=== PATIENT | male | born 1955 | race African-American/Black ===

== ENCOUNTER 2018-08-05 09:33 | Emergency (ER) | payer MEDICAID ==
[2018-08-05] MEDS ORDERED: IPRATROPIUM/ALBUTEROL 0.5-2.5 MG/3 ML AMPUL NEB ONE (10:00)
--- NOTE | 2018-08-05 10:01 | ER Document Report ---
ED General - General Chief Complaint: Cough Stated Complaint: COUGH/WEAKNESS/SHORT OF BREATH Primary Care Provider: JAMES HECK MD [Primary Care Provider] - Follow up as needed TRAVEL OUTSIDE OF THE [place] IN LAST 30 DAYS: No - HPI Notes: Patient is a 62-year-old male with a history of tobacco abuse who presents the emergency department complaining of dry nonproductive cough, nasal congestion/discharge, shortness of breath, and occasional chest tightness (none at this time) that began yesterday. Patient states that he does become short of breath with ambulation as well. He is otherwise able to eat and drink without difficulty. He is urinating normally and having normal bowel movements. P atient states that he does not take any medicines daily and has no other significant cardiopulmonary medical history. Denies drug allergies. Denies any headache, fever, neck pain, changes in vision/speech/mentation/hearing, sore throat, chest pain, palpitations, syncope, wheeze, abdominal pain, na usea/vomiting/diarrhea, urinary retention, dysuria, hematuria, or rash. Denies any prolonged immobilization, distance travel, recent surgery/trauma, personal cancer history, hormone use, or previous DVT/PE. - Related Data Allergies/Adverse Reactions: No Known Allergies Allergy (Verified 08/05/18 09:40) Past Medical History - Social History Smoking Status: Current Every Day Smoker Family History: Reviewed & Not Pertinent Review of Systems - Review of Systems -: Yes All other systems reviewed and negative Physical Exam - Vital signs Vitals: Temp Pulse Resp BP Pulse Ox 99.1 F 92 16 136/88 H 93 08/05/18 09:46 08/05/18 09:46 08/05/18 09:46 08/05/18 09:46 08/05/18 09:46 - Notes Notes: PHYSICAL EXAMINATION: GENERAL: Well-appearing, well-nourished and in no acute distress. A&Ox4. Answers questions appropriately. HEAD: Atraumatic, normocephalic. EYES: Pupils equal round and reactive to light, extraocular movements intact, sclera anicteric, conjunctiva are normal. ENT: Nares patent and without discharge. oropharynx clear without exudates. No tonsilar hypertrophy or erythema. Moist mucous membranes. NECK: Normal range of motion, supple without lymphadenopathy LUNGS: Diminished sounds b/l. No retractions. HEART: Regular rate and rhythm without murmurs, rubs, gallops. ABDOMEN: Soft, nontender, nondistended abdomen. No guarding, no rebound. No masses appreciated. Normal bowel sounds present. No CVA tenderness bilaterally. Musculoskeletal: FROM to passive/active. Strength 5+/5. Bibi neg. No asymmetry to LE's. Extremities: No cyanosis, clubbing, or edema b/l. Peripheral pulses 2+. Capillary refill less than 3 seconds. NEUROLOGICAL: Normal speech, normal gait. PSYCH: Normal mood, normal affect. SKIN: Warm, Dry, normal turgor, no rashes or lesions noted. Course - Re-evaluation Re-evalutation: 08/05/18 15:51 Patient is a well-hydrated 62-year-old male who presents to the ED with shortness of breath and acute UTI. pt did have a fever 101.9 develop during his stay. Patient is nontoxic-appearing and is tolerating p.o. without any difficulties. CBC, CMP, EKG/cardiac enzymes, VBG, influenza, chest x-ray are all unremarkable for any acute pathology. D-dimer was elevated and CTA chest negative for PE but did show emphysematic change. Pt was ambulated without O2 and he dropped/maintained 87-89% on RA. I thoroughly reviewed with the patient that he is hypoxic with a fever with no definitive source aside from a cough/URI symptoms. Pt and are adamant to go home. Risks/benefits reviewed including the possibility of due to incomplete work up. They verbalized understanding and state that they will return if things worsen. They declined 2nd trop test. Pt did receive magnesium, breathing treatments, solumedrol, and toradol. Patient is aware that his condition can change from initial presentation and he needs to monitor symptoms closely and seek medical attention for any acute changes. Rx for inhaler and steroids (dispense also provided for inhaler). Recommend conservative measures for symptoms. Recheck with your PCM in 1-2 days. Return to the ED with any worsening/concerning symptoms otherwise as reviewed in discharge. Patient is in agreement. Reviewed case with Dr. Reid who is in agreement with dispo/plan. - Vital Signs Vital signs: Temp Pulse Resp BP Pulse Ox 101.9 F H 92 24 H 143/89 H 95 08/05/18 14:49 08/05/18 09:46 08/05/18 10:01 08/05/18 10:00 08/05/18 10:01 - Laboratory Result Diagrams: 08/05/18 10:00 08/05/18 10:00 Laboratory results interpreted by me: 08/05/18 08/05/18 08/05/18 10:00 10:00 10:00 RDW 14.3 H D-Dimer 0.79 H ALT 17 L Discharge - Discharge Clinical Impression: Acute URI, SOB (shortness of breath) Fever Qualifiers: Fever type: unspecified Qualified Code(s): R50.9 - Fever, unspecified Condition: Stable Disposition: AGAINST MEDICAL ADVICE Additional Instructions: As reviewed, you are electing to sign out AGAINST MEDICAL ADVICE. You assume the risk of worsening symptoms, and the possibility of . Do not hesitate to return for any worsening symptoms. Maintain adequate fluid intake Take meds as directed tylenol/ibuprofen as needed for fever alternating every 3 hours over the counter cold medication as needed for symptoms Humidified air may help Wash your hands regularly Wear a mask when coughing F/u: with your PCM in 1-2 days for a recheck Return to the ED with any fever, worsening pain, chest pain, palpitations, syncope, worsening PINZON, neck pain/stiffness, shortness of breath, wheezing, drooling, trouble swallowing/breathing, abdominal pain, n/v/d, rash, or worsening/concerning symptoms otherwise. Prescriptions: Albuterol Sulfate [Proair HFA Inhalation Aerosol 8.5 gm MDI] 2 puff IH Q4H PRN #1 mdi PRN Reason: Prednisone [Deltasone 20 mg Tablet] 3 tab PO DAILY 4 Days tablet Forms: Elevated Blood Pressure Referrals: JAMES HECK MD [Primary Care Provider] - Follow up tomorrow
[2018-08-05 10:21] LABS: ABSOLUTE BASOPHILS # (AUTO) 0.1 10^3/uL (0.0-0.2); ABSOLUTE EOSINOPHILS # (AUTO) 0.1 10^3/uL (0.0-0.6); ABSOLUTE MONOCYTES (AUTO) 0.7 10^3/uL (0.1-1.4); ABSOLUTE NEUT (AUTO) 4.8 10^3/uL (1.7-8.2); BASOPHILS % (AUTO) 1.1 % (0-2); EOSINOPHILS % (AUTO) 1.1 % (0-6); HEMATOCRIT 41.1 % (37.9-51.0); HEMOGLOBIN 13.9 g/dL (13.5-17.0); LYMPHOCYTES % (AUTO) 15.2 % (13-45); MEAN CORPUSCULAR HEMOGLOBIN 28.1 pg (27.0-33.4); MEAN CORPUSCULAR HGB CONC 33.8 g/dL (32.0-36.0); MEAN CORPUSCULAR VOLUME 83 fl (80-97); MONOCYTES % (AUTO) 10.8 % (3-13); PLATELET COUNT 326 10^3/uL (150-450); RED BLOOD COUNT 4.94 10^6/uL (4.35-5.55); RED CELL DISTRIBUTION WIDTH 14.3 % (11.5-14.0); SEGMENTED NEUTROPHILS % (AUTO) 71.8 % (42-78); TOTAL CELLS COUNTED % (AUTO) 100 %; VENOUS BLOOD BASE EXCESS 0.8 mmol/L; VENOUS BLOOD HCO3 26.2 mmol/L (20-32); VENOUS BLOOD PCO2 44.7 mmHg (35-63); VENOUS BLOOD PH 7.39 (7.30-7.42); WHITE BLOOD COUNT 6.7 10^3/uL (4.0-10.5)
--- NOTE | 2018-08-05 10:26 | RADIOLOGY REPORT (SQ) ---
EXAM DESCRIPTION: CHEST SINGLE VIEW COMPLETED DATE/TIME: 08/05/2018 10:13 am REASON FOR STUDY: sob, cough COMPARISON: None. EXAM PARAMETERS: NUMBER OF VIEWS: One view. TECHNIQUE: Single frontal radiographic view of the chest acquired. RADIATION DOSE: NA LIMITATIONS: None. FINDINGS: LUNGS AND PLEURA: Minimal linear biapical opacities, likely scarring. No additional focal consolidation. No pleural effusion or pneumothorax. MEDIASTINUM AND HILAR STRUCTURES: No masses. Contour normal. HEART AND VASCULAR STRUCTURES: Heart normal in size. Normal vasculature. BONES: No acute bony abnormality. HARDWARE: None in the chest. OTHER: No other significant finding. IMPRESSION: No evidence of acute cardiopulmonary process. TECHNICAL DOCUMENTATION: JOB ID: [id number] [employer]- All Rights Reserved Reading location - IP/workstation name: [email or web address]
[2018-08-05 10:38] LABS: ALANINE AMINOTRANSFERASE 17 U/L (21-72); ALBUMIN 4.6 g/dL (3.5-5.0); ALKALINE PHOSPHATASE 84 U/L (38-126); ANION GAP 11 (5-19); ASPARTATE AMINO TRANSFERASE 34 U/L (17-59); BILIRUBIN,DIRECT 0.3 mg/dL (0.0-0.4); BILIRUBIN,TOTAL 0.7 mg/dL (0.2-1.3); BLOOD UREA NITROGEN 11 mg/dL (7-20); CALCIUM 9.5 mg/dL (8.4-10.2); CARBON DIOXIDE 24 mmol/L (22-30); CHLORIDE 102 mmol/L (98-107); GLUCOSE 104 mg/dL (75-110); POTASSIUM 4.9 mmol/L (3.6-5.0); SODIUM 137.4 mmol/L (137-145); TOTAL PROTEIN 8.1 g/dL (6.3-8.2)
[2018-08-05 10:49] LABS: NT PRO BNP 164 pg/mL (5-900)
[2018-08-05 10:53] LABS: TROPONIN I < 0.012 ng/mL
[2018-08-05 11:25] LABS: A TYPE INFLUENZA AG NEGATIVE (NEGATIVE)
[2018-08-05 11:26] LABS: B INFLUENZA AG NEGATIVE (NEGATIVE)
--- NOTE | 2018-08-05 14:06 | RADIOLOGY REPORT (SQ) ---
EXAM DESCRIPTION: CTA CHEST COMPLETED DATE/TIME: 08/05/2018 12:59 pm REASON FOR STUDY: sob COMPARISON: None. TECHNIQUE: CT scan of the chest performed using helical scanning technique with dynamic intravenous contrast injection. Images reviewed with lung, soft tissue and bone windows. Reconstructed coronal and sagittal MPR images reviewed. Additional 3 dimensional post-processing performed to develop Maximal Intensity Projection images (NE P). All images stored on PACS. All CT scanners at this facility use dose modulation, iterative reconstruction, and/or weight based d osing when appropriate to reduce radiation dose to as low as reasonably achievable (ALARA). [facility]: Dose Right [facility]: CareDose [facility]: Dose Right [facility]: Teradose 4D [facility]: [email or web address] CONTRAST TYPE AND DOSE: contrast/concentration: Isovue 350.00 mg/ml; Total Contrast Delivered: 62.0 ml; Total Saline Delivered: 103.0 ml 08/05/2018 Contrast bolus adequate for pulmonary arteries and aorta. RENAL FUNCTION: BUN 11, creatinine 1.04 RADIATION DOSE: CT Rad equipment meets quality standard of care and radiation dose reduction techniq ues were employed. CTDIvol: 15.5 - 16.5 mGy. DLP: 610 mGy-cm. . LIMITATIONS: None. FINDINGS: LUNGS AND PLEURA: Upper lobe predominant centrilobular and panacinar emphysema, right grea ter than left. No dense consolidation. No significant pleural effusion. No pneumothorax. Bilatera l calcified pleural plaques. No discrete parenchymal masses. AORTA AND GREAT VESSELS: No aneurysm. Contrast bolus not optimized for the aorta. HEART: No pericardial effusion. Scattered coronary atherosclerosis. PULMONARY ARTERIES: No evidence of pulmonary embolus. Right to left ventricular ratio is normal. HILAR AND MEDIASTINAL STRUCTURES: No mediastinal, hilar or axillary adenopathy. HARDWARE: None in the chest. UPPER ABDOMEN: No significant findings. Limited exam. THYROID AND OTHER SOFT TISSUES: No masses. No adenopathy. BONES: No acute bony abnormality. No suspicious osseous lesions. Partial fusion of the upper thorac ic vertebral bodies. 3D MIPS: Confirm above findings. OTHER: No other significant finding. IMPRESSION: 1. No evidence of pulmonary embolus or other acute intrathoracic process. 2. Emphysematous change. 3. Bilateral calcified pleural plaques which can be seen with prior asbestos exposure. COMMENT: Quality ID # [id number]: Final reports with documentation of one or more dose reduction techniques (e.g., Automated exposure control, adjustment of the mA and/or kV according to patient size, use of iterative reconstruction technique) TECHNICAL DOCUMENTATION: JOB ID: [id number] [employer]- All Rights Reserved Reading location - IP/workstation name: [email or web address]
[2018-08-05] MEDS ORDERED: MAGNESIUM SULFATE/D5W 1 GM/100 ML RTUPB IV ONE ×2 (14:08→14:09)
[2018-08-05] MEDS ORDERED: ALBUTEROL SULFATE 0.083% NEB 2.5 MG/3 ML AMPUL NEB ONE (14:09)
[2018-08-05] MEDS ORDERED: METHYLPREDNISOLONE INJ 125 MG/2 ML SDV IV ONE (14:09)
[2018-08-05] MEDS ORDERED: KETOROLAC TROMETHAMINE INJ/PF 30 MG/1 ML SDV IV ONE (14:47)
[2018-08-05 16:00] VITALS: BP 106/57
[2018-08-05] MEDS ORDERED: ALBUTEROL SULFATE HFA (90 MCG/PUFF) 8 GM MDI (1 MDI/ER DISP) IH ONE (16:05)
--- NOTE | 2018-08-05 21:25 | EKG REPORT ---
SEVERITY:- ABNORMAL ECG - SINUS TACHYCARDIA CONSIDER LEFT VENTRICULAR HYPERTROPHY : Confirmed by: Miesha Mcclure 05-Aug-2018 21:25:03
== END 2018-08-05 16:13 | disposition left against medical advice (07) ==
LOC: ER 09:33
DX: J06.9 Acute upper respiratory infection, unspecified (principal); N39.0 Urinary tract infection, site not specified; R50.9 Fever, unspecified; R05 Cough; R09.81 Nasal congestion; R06.02 Shortness of breath; F17.200 Nicotine dependence, unspecified, uncomplicated
CPT/HCPCS: 93005; 36415; 87040; 83605; 85025; 80053; 84484; 85379; 82803; 87804; 83880; 71045; 71275; 93010; J2930; J1885; J3475; J3490; J7620

== ENCOUNTER 2019-06-10 13:44 | Emergency (ER) | payer MEDICAID ==
[2019-06-10 14:00] VITALS: BP 131/83
== END 2019-06-10 16:20 | disposition left against medical advice (07) ==
LOC: ER 13:44
DX: Z53.21 Procedure and treatment not carried out due to patient leaving prior to being seen by health care provider (principal)